=== PATIENT | female | born 1970 | race Caucasian/White ===

== ENCOUNTER → 2016-10-13 | Outpatient (CLI) | payer BC, OTHER ==
--- NOTE | 2016-10-13 20:11 | Diagnostic Imaging Report ---
PROCEDURE: US Thyroid. TECHNIQUE: Multiple real-time grayscale images were obtained of the thyroid in various projections. INDICATION: Thyroid nodule. COMPARISON: 08/03/11. FINDINGS: The right thyroid lobe is 4.2 x 1.3 x 1.4 CM. The left lobe is 3.6 x 1.2 x 1 CM. The thyroid gland is heterogenous with no discrete mass identified. The previously seen nodule in the right thyroid lobe is not well seen. IMPRESSION: Heterogenous thyroid gland with no discrete nodule. Dictated by: Dictated on workstation # [id number]
== END ==
LOC: RAD 13:01
PROVIDERS: ATTEND Nurse Practitioner Family
DX: E04.1 Nontoxic single thyroid nodule (principal)
CPT/HCPCS: 76536

== ENCOUNTER → 2018-07-10 | Outpatient (CLI) | payer BC, OTHER ==
--- NOTE | 2018-07-10 20:01 | Diagnostic Imaging Report ---
EXAMINATION: Digital mammogram bilateral screening with 3D tomosynthesis. The current study was also evaluated with a Computer Aided Detection (CAD) system. INDICATION: Screening. This study was compared to the prior exams 12/24/2014 and 05/27/2013. At this time, there are no current complaints. FINDINGS: The fibroglandular tissue in both breasts is dense. This does limit the sensitivity of this exam. The tomographic images do suggest that there is a roughly 1 cm rounded density in the retroareolar region of the right breast. There also appear to be three roughly 1 cm rounded densities in the lateral aspect of the left breast. The previous left breast ultrasound exam performed on 12/30/2014 did note multiple cysts in this area. I am not certain that these cysts have changed significantly, but I would recommend that ultrasound of both breasts be performed for further study. There is no primary or secondary sign of malignancy noted otherwise. IMPRESSION: Ultrasound of both breasts will be recommended for further evaluation. ACR BI-RADS Category 3: Probably benign findings. Result letter will be mailed to the patient. Note: At least 10% of breast cancer is not imaged by mammography. Dictated by: Dictated on workstation # [id number]
== END ==
LOC: RAD 08:13
PROVIDERS: ATTEND Obstetrics & Gynecology
DX: Z12.31 Encounter for screening mammogram for malignant neoplasm of breast (principal)
CPT/HCPCS: 77067

== ENCOUNTER → 2018-07-20 | Outpatient (CLI) | payer BC ==
--- NOTE | 2018-07-20 12:29 | Diagnostic Imaging Report ---
INDICATION: Abnormal screening mammogram. This study is performed for further evaluation. CORRELATION is made with recent screening study from 07/10/2018. RIGHT BREAST: Recent mammogram described a circumscribed density in the retroareolar right breast. There are several cysts in the retroareolar right breast. The largest measures 1.2 x 0.5 x 1.1 cm. This likely accounts for the mammographic density. No solid mass is detected. On the left, circumscribed density in the outer portion. There is a cyst at the 3 o'clock location measuring approximately 1 cm in size. This likely accounts for the mammographic density. In addition, there are retroareolar cysts present. No solid mass is detected. IMPRESSION: BI-RADS category 2 Bilateral breast cysts, likely accounting for the mammographic densities. No suspicious abnormality is seen. The patient may return to routine annual screening mammography. Dictated by: Dictated on workstation # [id number]
== END ==
LOC: RAD 09:19
PROVIDERS: ATTEND Obstetrics & Gynecology
DX: N60.01 Solitary cyst of right breast (principal); N60.02 Solitary cyst of left breast
CPT/HCPCS: 76642

== ENCOUNTER → 2020-12-25 | Outpatient (CLI) | payer BC, OTHER ==
--- NOTE | 2020-12-25 11:31 | Diagnostic Imaging Report ---
Indication: Routine screening. Comparison is made prior mammogram 07/10/2018 and 12/24/2014. 2-D and 3-D bilateral screening mammography was performed with CAD. Both breasts are diffusely dense, limiting the sensitivity of mammography. Circumscribed nodule in the outer left breast is noted, consistent with a cyst. Circumscribed nodules in the left breast are also noted consistent with cysts. These have been shown by ultrasound. No spiculated mass or malignant appearing microcalcifications are seen. Axillae are unremarkable. IMPRESSION: BI-RADS Category 2 No mammographic features suspicious for malignancy are identified. ACR BI-RADS Category 2: Benign findings. Result letter will be mailed to the patient. Note: At least 10% of breast cancer is not imaged by mammography. Dictated by: Dictated on workstation # [id number]
== END ==
LOC: RAD 08:07
PROVIDERS: ATTEND Obstetrics & Gynecology
DX: Z12.31 Encounter for screening mammogram for malignant neoplasm of breast (principal)
CPT/HCPCS: 77063; 77067

== ENCOUNTER → 2022-01-04 | Outpatient (CLI) | payer OTHER ==
--- NOTE | 2022-01-04 15:00 | Diagnostic Imaging Report ---
INDICATION: Bilateral digital 3-D screening with CAD COMPARED: 12/2020, 06/2018 FINDINGS: Density 3 No breast mass, spiculated lesion, architectural distortion, suspicious calcifications or interval changes are apparent. No suspicious calcifications. IMPRESSION: BI-RADS category 1 ACR BI-RADS Category 1: Negative. Result letter will be mailed to the patient. Note: At least 10% of breast cancer is not imaged by mammography. Dictated by: Dictated on workstation # [id number]
== END ==
LOC: RAD 08:10
PROVIDERS: ATTEND Obstetrics & Gynecology
DX: Z12.31 Encounter for screening mammogram for malignant neoplasm of breast (principal)
CPT/HCPCS: 77063; 77067

== ENCOUNTER → 2023-01-04 | Outpatient (CLI) | payer OTHER ==
--- NOTE | 2023-01-04 14:15 | Diagnostic Imaging Report ---
3-D bilateral screening mammogram with CAD. The current study was also evaluated with a Computer Aided Detection (CAD) system. This study was compared to the prior exams of 01/04/2022 and 12/25/2020. At this time there are no current complaints. The current study was also evaluated with a Computer Aided Detection (CAD) system. FINDINGS: The fibroglandular tissue in both breasts is heterogeneously dense. This does limit the sensitivity of this exam. Overall, there does not appear to have been any significant change when compared to the prior study. No primary or secondary sign of malignancy is noted. IMPRESSION: There is no radiographic evidence for malignancy. ACR BI-RADS Category 1: Negative. Result letter will be mailed to the patient. Note: At least 10% of breast cancer is not imaged by mammography. Dictated by: Dictated on workstation # [id number]
== END ==
LOC: RAD 09:21
PROVIDERS: ATTEND Obstetrics & Gynecology
DX: Z12.31 Encounter for screening mammogram for malignant neoplasm of breast (principal)
CPT/HCPCS: 77063; 77067

== ENCOUNTER → 2023-02-22 | Outpatient (CLI) | payer OTHER ==
[~2023-02-22] MED LIST: GADOBUTROL 15 MMOL/15 ML (GADAVIST) VIAL IV ONE
== END ==
LOC: RAD 08:46
PROVIDERS: ATTEND Obstetrics & Gynecology
DX: Z53.9 Procedure and treatment not carried out, unspecified reason (principal)